=== PATIENT | female | born 1965 | race Hispanic/Latino ===

== ENCOUNTER 2016-11-29 22:24 | Emergency (ER) | payer SELFPAY ==
[~2016-11-29] VITALS: Ht 154.9 cm; Wt 68.9 kg
[~2016-11-29 22:24] MED LIST: BUTA-234 PO; CYCL10TA9 PO; MOME15OI TP; PRD5T PO
[2016-11-29] MEDS ORDERED: [UNRECOGNIZED DRUG - REMARK] (22:49)
[2016-11-29] MEDS ORDERED: morphine INJ 10 MG/ML 1ML (SYR OR VIAL) IV STA (23:19)
[2016-11-29] MEDS ORDERED: NS IV 1000 ML 1,000 ML IV ONE (23:19)
[2016-11-29] MEDS ORDERED: ONDANSETRON 4 MG/2 ML (SDV) Z0FRAN IVP ONE (23:30)
[2016-11-29] MEDS ORDERED: ASPIRIN 81 MG CHEW (CHILDREN'S ASA) PO ONE (23:30)
--- NOTE | 2016-11-29 23:30 | ED Chest Pain ---
General Chief Complaint: Chest Pain Stated Complaint: L BREAST/SIDE/FACIAL PAIN Nursing Triage Note: Pt moaning and 31 y/o dgt translates left breast burning and tight since 1800. Pain rated "9". No history of cardiac or major health issues except anxiety. Nursing Sepsis Screen: No Definite Risk Source: patient, family (daughter) Exam Limitations: language barrier ([place] Citizen) History of Present Illness Time seen by provider: 23:21 Initial Comments Patient presents to ER by private conveyance with her daughter with chief complaint of burning sensation under her left breast that began about 1800 tonight accompanied with some nausea and vomiting. She says that she's had some abdominal distention this always gets worse after eating and then she starts having a lot of gas belching and then throwing up. She has a history of hysterectomy but no coronary disease. No primary family coronary disease or early onset coronary disease. No thyroid or blood pressure problems. She does not smoke drink or use recreational drugs. Her last menstrual period was approximately 2 weeks ago. Allergies and Home Medications Allergies Coded Allergies: Fentanyl (Unverified Allergy, Severe, chest pain, palpations, 12/10/09) Penicillins (Unverified Allergy, Mild, 06/02/09) Home Medications [Anxiety pill] , (Reported) Review of Systems Constitutional: No chills, No diaphoresis, No fever, No malaise EENTM: No Eye Pain, No Ear Pain Respiratory: Denies Cough, Denies Shortness of Air Cardiovascular: See HPI, Chest Pain, Denies Edema, Denies Lightheadedness, Denies Palpitations, Denies Syncope Gastrointestinal: Abdomen Distended, Abdominal Pain (superpubic), Denies Constipated, Denies Diarrhea, Nausea, Vomiting Genitourinary: Denies Burning, Denies Discharge Musculoskeletal: No back pain, No joint pain Skin: No pruritus, No rash Psychiatric/Neurological: Denies Headache, Denies Numbness, Denies Paresthesia Past [id number] Hx Patient Social History Alcohol Use: Denies Use Recreational Drug Use: No Smoking Status: Never a Smoker 2nd Hand Smoke Exposure: No Recent Foreign Travel: No Contact w/Someone Who Travel: No Recent Infectious Disease Expo: No Recent Hopitalizations: No Seasonal Allergies Seasonal Allergies: No Surgeries History of Surgeries: Yes Surgeries: Hysterectomy Respiratory History of Respiratory Disorde: No Cardiovascular History of Cardiac Disorders: No Neurological History of Neurological Disord: No Reproductive System : No 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 Genitourinary History of Genitourinary Disor: No Gastrointestinal History of Gastrointestinal Di: No Musculoskeletal History of Musculoskeletal Dis: No Endocrine History of Endocrine Disorders: No HEENT History of HEENT Disorders: No Cancer History of Cancer: No Psychosocial History of Psychiatric Problem: Yes Behavioral Health Disorders: Anxiety Integumentary History of Skin or Integumenta: No Blood Transfusions History of Blood Disorders: No Physical Exam Vital Signs Vital Sign - Last 12Hours Capillary Refill : Less Than 3 Seconds General Appearance: WD/WN, Anxious HEENT: PERRL/EOMI, Pharynx Normal Neck: Normal Inspection, Non Tender, Supple Respiratory: Chest Non Tender, Lungs Clear, Normal Breath Sounds Cardiovascular: Regular Rate, Rhythm, No Edema, No Gallop, No Murmur, Normal Peripheral Pulses Gastrointestinal: Normal Bowel Sounds, No Organomegaly, Soft, Distended, Tenderness (suprapubic) Extremity: Normal Capillary Refill, Normal Inspection, No Pedal Edema Neurologic/Psychiatric: Alert, Oriented x3 Skin: Normal Color, Warm/Dry Lymphatic: No Adenopathy Progress/Results/Core Measures Results/Orders Lab Results Laboratory Tests Test 11/29/16 22:32 11/29/16 23:00 Range/Units Urine Color YELLOW Urine Clarity SLIGHTLY CLOUDY Urine pH 8 5-9 Urine Specific [place] 1.020 1.016-1.022 Urine Protein NEGATIVE NEGATIVE Urine Glucose (UA) 2+ H NEGATIVE Urine Ketones NEGATIVE NEGATIVE Urine Nitrite NEGATIVE NEGATIVE Urine Bilirubin NEGATIVE NEGATIVE Urine Urobilinogen 1 NORMAL MG/DL Urine Leukocyte Esterase 2+ H NEGATIVE Urine RBC (Auto) 3+ H NEGATIVE Urine RBC 0-2 /HPF Urine WBC 5-10 H /HPF Urine Squamous Epithelial Cells 10-25 H /HPF Urine Crystals PRESENT H /LPF Urine Amorphous Sediment MOD BEATRIZ PHOSPHATE H /LPF Urine Bacteria FEW H /HPF Urine Casts NONE /LPF Urine Mucus NEGATIVE /LPF Urine Culture Indicated YES Urine Opiates Screen NEGATIVE NEGATIVE Urine Oxycodone Screen NEGATIVE NEGATIVE Urine Methadone Screen NEGATIVE NEGATIVE Urine Propoxyphene Screen NEGATIVE NEGATIVE Urine Barbiturates Screen NEGATIVE NEGATIVE Ur Tricyclic Antidepressants Screen NEGATIVE NEGATIVE Urine Phencyclidine Screen NEGATIVE NEGATIVE Urine Amphetamines Screen NEGATIVE NEGATIVE Urine Methamphetamines Screen NEGATIVE NEGATIVE Urine Benzodiazepines Screen NEGATIVE NEGATIVE Urine Cocaine Screen NEGATIVE NEGATIVE Urine Cannabinoids Screen NEGATIVE NEGATIVE White Blood Count 11.7 H 4.3-11.0 10^3/uL Red Blood Count 4.90 4.35-5.85 10^6/uL Hemoglobin 15.1 11.5-16.0 G/DL Hematocrit 44 35-52 % Mean Corpuscular Volume 90 80-99 FL Mean Corpuscular Hemoglobin 31 25-34 PG Mean Corpuscular Hemoglobin Concent 34 32-36 G/DL Red Cell Distribution Width 12.1 10.0-14.5 % Platelet Count 243 130-400 10^3/uL Mean Platelet Volume 11.1 H 7.4-10.4 FL Neutrophils (%) (Auto) 56 42-75 % Lymphocytes (%) (Auto) 33 12-44 % Monocytes (%) (Auto) 9 0-12 % Eosinophils (%) (Auto) 2 0-10 % Basophils (%) (Auto) 0 0-10 % Neutrophils # (Auto) 6.5 1.8-7.8 X 10^3 Lymphocytes # (Auto) 3.9 1.0-4.0 X 10^3 Monocytes # (Auto) 1.0 0.0-1.0 X 10^3 Eosinophils # (Auto) 0.2 0.0-0.3 10^3/uL Basophils # (Auto) 0.1 0.0-0.1 10^3/uL Prothrombin Time 12.2 12.2-14.7 SEC INR Comment 0.9 0.8-1.4 Activated Partial Thromboplast Time 32 24-35 SEC Sodium Level 137 135-145 MMOL/L Potassium Level 3.1 L 3.6-5.0 MMOL/L Chloride Level 101 98-107 MMOL/L Carbon Dioxide Level 25 21-32 MMOL/L Anion Gap 11 5-14 MMOL/L Blood Urea Nitrogen 10 7-18 MG/DL Creatinine 0.80 0.60-1.30 MG/DL Estimat Glomerular Filtration Rate > 60 BUN/Creatinine Ratio 13 Glucose Level 167 H 70-105 MG/DL Calcium Level 10.0 8.5-10.1 MG/DL Magnesium Level 2.5 H 1.8-2.4 MG/DL Total Bilirubin 0.4 0.1-1.0 MG/DL Aspartate Amino Transf (AST/SGOT) 35 H 5-34 U/L Alanine Aminotransferase (ALT/SGPT) 80 H 0-55 U/L Alkaline Phosphatase 98 40-136 U/L Myoglobin 15.5 10.0-92.0 NG/ML Troponin I < 0.30 <0.30 NG/ML Total Protein 7.7 6.4-8.2 GM/DL Albumin 4.4 3.2-4.5 GM/DL Lipase 29 8-78 U/L My Orders Orders - YECENIA MOYA Cbc With Automated Diff (11/29/16 23:19) Comprehensive Metabolic Panel (11/29/16 23:19) Drug Screen Stat (Urine) (11/29/16 23:19) Ua Culture If Indicated (11/29/16 23:19) Magnesium (11/29/16 23:19) Chest 1 View, Ap/Pa Only (11/29/16 23:) Ekg Tracing (11/29/16 23:19) Cardiac Profile 1 (11/29/16 23:19) Myoglobin Serum (11/29/16 23:19) Protime With Inr (11/29/16 23:) Partial Thromboplastin Time (11/29/16 23:19) O2 (11/29/16 23:19) Monitor-Rhythm Ecg Trace Only (11/29/16 23:19) Lipid Panel (11/30/16 06:00) Aspirin Chewable Tablet (Baby Aspirin Ch (11/29/16 23:30) Morphine Injection (Morphine Injection (11/29/16 23:19) Saline Lock/Iv-Start (11/29/16 23:19) Lipase (11/29/16 23:19) Saline Lock/Iv-Start (11/29/16 23:19) Ns Iv 1000 Ml (Sodium Chloride 0.9%) (11/29/16 23:19) Ondansetron Injection (Zofran Injectio (11/29/16 23:30) Urine Culture (11/29/16 22:32) Ct Abdomen/Pelvis Wo (11/30/16 00:18) Lidocaine 2% Viscous 15 Ml (Xylocaine Vi (11/30/16 01:00) Antacid Suspension (Mylanta Suspension (11/30/16 01:00) Medications Given in ED Current Medications Medications Dose Ordered Sig/Eva Route Start Time Stop Time Status Last Admin Dose Admin Al Hydrox/Mg Hydrox/Simethicone 30 ml ONCE ONCE PO 9/2/17 01:00 11/30/16 01:01 DC 11/30/16 01:08 30 ML Aspirin 324 mg ONCE ONCE PO 11/29/16 23:30 11/29/16 23:31 DC 11/29/16 23:37 324 MG Lidocaine HCl 15 ml ONCE ONCE PO 11/30/16 01:00 11/30/16 01:01 DC 11/30/16 01:08 15 ML Ondansetron HCl 4 mg ONCE ONCE IVP 11/29/16 23:30 11/29/16 23:31 DC 11/29/16 23:36 4 MG Sodium Chloride 1,000 ml @ 0 mls/hr Q0M ONCE IV 11/29/16 23:19 11/29/16 23:25 DC 11/29/16 23:37 999 MLS/HR Vital Signs/I&O Vital Sign - Last 12Hours 11/29/16 11/29/16 11/29/16 22:39 22:39 23:37 Temp 97.2 97.2 Pulse 117 Resp 22 B/P (MAP) 180/91 Pulse Ox 99 O2 Delivery Room Air Room Air Blood Pressure Mean: 120 Progress Note : Time: 23:29 Progress Note We'll do a chest pain workup of this patient still has her ovaries and no primary history leaning that direction. No diabetes. We will however think about things like gallbladder if there is no other labs that, positive. Her distention, belching and nausea and vomiting after meals are more indicative of a gallbladder however she has Abraham's negative on exam. We'll going give her a GI cocktail as well. ECG Initial ECG Impression Date: Nov 29, 2016 Initial ECG Impression Time: 22:46 Initial ECG Rate: 122 Initial ECG Rhythm: S.Tach Initial ECG Intervals: Normal Initial ECG Impression: Normal, Nonspecific Changes Initial ECG Comparisson: No Previous ECG Available Comment No ST wave elevation or depression Diagnostic Imaging Diagonstic Imaging: Xray Plain Films/CT/US/NM/MRI: chest Comments No acute cardial pulmonary processes noted. Reviewed: Reviewed by Me Diagonstic Imaging: CT Plain Films/CT/US/NM/MRI: abdomen, pelvis Reviewed: Reviewed Night [facility] Study, Reviewed by Me Departure Impression Impression: Primary Impression: Chest pain Qualified Codes: R07.89 - Other chest pain Additional Impressions: Nausea and vomiting Qualified Codes: R11.2 - Nausea with vomiting, unspecified Abdominal distention Disposition: HOME, SELF-CARE Condition: Improved Departure-Patient Inst. Decision time for Depature: 01:59 Referrals: [facility] (PCP/Family) Primary Care Physician Patient Instructions: Chest Pain That Is Not Caused by the Heart (DC) Add. Discharge Instructions: Since you improved on the GI cocktail we will give you a medicine to keep the acid levels down to be taken every day called omeprazole. You should also use the nausea medicine Zofran every time you feel like you might need to throw up every 6 hours as needed. You should follow up with your primary care physician at [facility] on Friday when they reopen to get an appointment to be seen by your doctor and further workup for your symptoms. If you have new or worsening symptoms you should return to the ER. All discharge instructions reviewed with patient and/or family. Voiced understanding. Scripts Ondansetron (Zofran Odt) 4 Mg Tab.rapdis 4 MG PO Q6H Y for NAUSEA/VOMITING-1ST LINE, #14 TAB 0 Refills Prov: YECENIA MOYA 11/30/16 Omeprazole (Omeprazole) 20 Mg Capsule.dr 20 MG PO DAILY for 30 Days, #30 CAP 0 Refills Prov: YECENIA MOYA 11/30/16 Copy Copies To 1: STEFFANY GOLDSMITH TITUS J Nov 29, 2016 23:30
[2016-11-29 23:31] LABS: BILIRUBIN,URINE NEGATIVE (NEGATIVE); KETONES,URINE NEGATIVE (NEGATIVE); LEUKOCYTE ESTERASE ,URINE 2+ (NEGATIVE); NITRITE,URINE NEGATIVE (NEGATIVE); PH,URINE 8 (5-9); PROTEIN,URINE NEGATIVE (NEGATIVE); UROBILINOGEN,URINE 1 MG/DL (NORMAL)
[2016-11-29 23:32] LABS: BASOPHILS # (AUTO) 0.1 10^3/uL (0.0-0.1); BASOPHILS % (AUTO) 0 % (0-10); EOSINOPHILS # (AUTO) 0.2 10^3/uL (0.0-0.3); EOSINOPHILS % (AUTO) 2 % (0-10); LYMPHOCYTES # (AUTO) 3.9 X 10^3 (1.0-4.0); LYMPHOCYTES % (AUTO) 33 % (12-44); MEAN CORPUSCULAR HEMOGLOBIN 31 PG (25-34); MEAN CORPUSCULAR HGB CONC 34 G/DL (32-36); MEAN CORPUSCULAR VOLUME 90 FL (80-99); MEAN PLATELET VOLUME 11.1 FL (7.4-10.4); MONOCYTES % (AUTO) 9 % (0-12); NEUTROPHILS # (AUTO) 6.5 X 10^3 (1.8-7.8); NEUTROPHILS % (AUTO) 56 % (42-75); PLATELET COUNT 243 10^3/uL (130-400); RED CELL DISTRIBUTION WIDTH 12.1 % (10.0-14.5); WHITE BLOOD COUNT 11.7 10^3/uL (4.3-11.0)
[2016-11-29 23:37] LABS: INR 0.9 (0.8-1.4); PROTHROMBIN TIME PATIENT 12.2 SEC (12.2-14.7)
[2016-11-29 23:48] LABS: LIPASE 29 U/L (8-78); MAGNESIUM 2.5 MG/DL (1.8-2.4)
[2016-11-29 23:50] LABS: ALANINE AMINOTRANSFERASE 80 U/L (0-55); ALBUMIN 4.4 GM/DL (3.2-4.5); ANION GAP 11 MMOL/L (5-14); ASPARTATE AMINO TRANSFERASE 35 U/L (5-34); BILIRUBIN,TOTAL 0.4 MG/DL (0.1-1.0); BLOOD UREA NITROGEN 10 MG/DL (7-18); BUN/CREATININE RATIO 13; CARBON DIOXIDE 25 MMOL/L (21-32); CHLORIDE 101 MMOL/L (98-107); GFR ESTIMATED > 60; GLUCOSE 167 MG/DL (70-105); POTASSIUM 3.1 MMOL/L (3.6-5.0); SODIUM 137 MMOL/L (135-145); TOTAL PROTEIN 7.7 GM/DL (6.4-8.2)
[2016-11-29 23:56] LABS: MYOGLOBIN SERUM 15.5 NG/ML (10.0-92.0)
[2016-11-30] MEDS ORDERED: LIDOCAINE 2% VISCOUS 15 ML UDC PO ONE (01:00)
[2016-11-30] MEDS ORDERED: ANTACID SUSP 30 ML UDC (MYLANTA) PO ONE (01:00)
[2016-11-30] MEDS ORDERED: OMEP20CA12 PO (02:02)
[2016-11-30] MEDS ORDERED: ONDA4TAB8 PO (02:02)
[2016-11-30 02:11] VITALS: BP 134/62
--- NOTE | 2016-11-30 07:16 | Diagnostic Imaging Report ---
Clinical indication: Patient complains of left-sided chest pain. Exam: Portable chest x-ray upright view. Comparisons: Chest x-ray dated 12/09/2009. Findings: Lungs/pleura: Lungs are clear. There is no pneumothorax. There is no pleural effusion. Mediastinum: Unremarkable. Pulmonary vasculature: Unremarkable. Heart: Unremarkable. Bones/extrathoracic soft tissue: Unremarkable. Impression: There is no radiographic evidence of acute cardiopulmonary process. Dictated by: Dictated on workstation # [id number]
--- NOTE | 2016-11-30 07:33 | Diagnostic Imaging Report ---
Clinical indication: Patient with left-sided pain and nausea. Patient has history of hysterectomy. Exam: CT exam of the abdomen and pelvis is performed without IV or oral contrast using stone protocol. Comparisons: None. Findings: Visualized lung bases: There is minimal atelectasis or scarring in both lung bases. Liver: There is diffuse low-attenuation changes seen throughout the liver suspected to be related to diffuse fatty infiltration. There is fatty sparing seen adjacent to the gallbladder fossa. Otherwise, the liver is unremarkable as visualized. Gallbladder: Unremarkable. Pancreas: Unremarkable as visualized. Spleen: Unremarkable as visualized. Adrenal glands: Unremarkable. Kidneys/ ureters: Unremarkable as visualized. Aorta: Unremarkable as visualized. Intraabdominal/ retroperitoneal contents: Unremarkable. Intestines: Unremarkable as visualized. Appendix: Unremarkable. Bladder: Unremarkable as visualized. Pelvic organs: Unremarkable as visualized. Extra abdominal/ pelvis regions: Unremarkable. Abdominal wall: There is a small fat-containing umbilical hernia. Bones: Unremarkable. Impression: 1: There is no evidence of acute abdominal or pelvic process. 2: Suspected diffuse fatty infiltration of the liver with fatty sparing adjacent to the gallbladder fossa. 3: There is a small fat-containing umbilical hernia. I agree with [employer] report.. Dictated by: Dictated on workstation # [id number]
== END 2016-11-30 02:11 | disposition home or self-care (01) ==
LOC: EDUNIT# 22:24 → ER 22:25
DX: R07.9 Chest pain, unspecified (principal); R11.2 Nausea with vomiting, unspecified; R14.0 Abdominal distension (gaseous); F41.9 Anxiety disorder, unspecified; Z90.710 Acquired absence of both cervix and uterus
CPT/HCPCS: 36415; 71010; 74176; 80053; 80306; 81000; 83690; 83735; 83874; 84484; 85025; 85610; 85730; 87088; 93005; 93041; 96374; 96375